=== PATIENT | female | born 1985 | race Caucasian/White ===

== ENCOUNTER 2017-11-14 15:52 | Emergency (ER) | payer SELFPAY ==
[~2017-11-14] VITALS: Ht 157.5 cm; Wt 57.3 kg
[2017-11-14 19:14] LABS: HEMATOCRIT 32.8 % (36.0-46.0); HEMOGLOBIN 11.5 G/DL (11.9-15.5); MCH 30.6 PG (29.0-34.0); MCHC 35.1 G/DL (30.0-36.0); MCV 87.2 FL (83-99); PLATELET COUNT 206 K/uL (156-360); RBC DIS.WIDTH-CV 13.6 % (11.8-14.6); RBC DIS.WIDTH-SD 43.4 % (39-53); RED BLOOD COUNT 3.76 M/uL (3.80-5.20)
[2017-11-14 19:25] LABS: CHLORIDE 107 mEq/L (99-109); POTASSIUM 3.3 mEq/L (3.7-5.4); SODIUM 136 mEq/L (136-147)
[2017-11-14 19:26] LABS: GLUCOSE 106 mg/dL (70-99)
[2017-11-14 19:30] LABS: CREATININE 0.6 mg/dL (0.6-1.3); GFR ESTIMATE (CALCULATED) > 59 mL/min/
[2017-11-14 19:31] LABS: UREA NITROGEN (BUN) 7 mg/dL (9-23)
[2017-11-14 20:39] LABS: QUANTITATIVE HCG 72914.3 MIU/ML
[2017-11-14] MEDS ORDERED: ZITHROMAX Z-PA250 MG PO (20:40)
[2017-11-14] MEDS ORDERED: AZITHROMYCIN250 MG1 PO (20:53)
[2017-11-14 21:06] VITALS: BP 103/76
== END 2017-11-14 21:17 | disposition home or self-care (01) ==
LOC: EME 15:52 → RME 15:52 → EDBD 15:52 → RME 21:17
PROVIDERS: Physician Assistant Medical
DX: O99.511 Diseases of the respiratory system complicating pregnancy, first trimester (principal); J10.00 Influenza due to other identified influenza virus with unspecified type of pneumonia; Z3A.12 12 weeks gestation of pregnancy; O99.331 Smoking (tobacco) complicating pregnancy, first trimester; F17.200 Nicotine dependence, unspecified, uncomplicated
CPT/HCPCS: 71046; 80048; 84702; 85027; 87502; 94640; 99281; 99285; J7030